=== PATIENT | female | born 1970 | race Caucasian/White ===

== ENCOUNTER 2020-02-12 10:00 | Outpatient (CLI) | payer BC | END 2020-02-12 10:01 | disposition home or self-care (01) | LOC: DTY/OP 10:00 | PROVIDERS: ATTEND Surgery | DX: E66.01 Morbid (severe) obesity due to excess calories (principal) | CPT/HCPCS: 97802 ==

== ENCOUNTER 2020-04-02 08:00 | Inpatient (IN) | payer BC ==
[2020-04-03] MEDS ORDERED: Lidocaine 1% PF 5 ML VIAL ONE (09:52)
[2020-04-03] MEDS ORDERED: Rocuronium Bromide 10 MG/ML (10ML VIAL) ONE (09:52)
[2020-04-03] MEDS ORDERED: PROPOFOL 200 MG/20 ML VIAL ONE (09:52)
[2020-04-03] MEDS ORDERED: Ondansetron PF 4 MG/2 ML Vial ONE ×2 (09:52→13:37)
[2020-04-03] MEDS ORDERED: Heparin 5,000 UNITS/ML VIAL ONE (11:38)
[2020-04-03] MEDS ORDERED: Bupivacaine 0.25% HCL 30 ML VIAL ONE (12:30)
[2020-04-03] MEDS ORDERED: Lidocaine 1% w/Epinephrine 1:100K 20 ML VIAL ONE (12:30)
[2020-04-03] MEDS ORDERED: Midazolam HCl 2 mg/2 ml Vial ONE (12:44)
[2020-04-03] MEDS ORDERED: Fentanyl 100 MCG/2 ML VIAL ONE ×5 (12:44→15:13)
[2020-04-03] MEDS ORDERED: SUGAMMADEX SODIUM 200 MG/2 ML VIAL ONE ×2 (13:37→13:56)
[2020-04-03] MEDS ORDERED: Zolpidem Tartrate 5 MG TAB PO PRN (14:26)
[2020-04-03] MEDS ORDERED: Promethazine HCl 25 MG/ML VIAL IM PRN ×2 (14:26→15:07)
[2020-04-03] MEDS ORDERED: diphenhydrAMINE 25 MG CAP PO PRN (14:26)
[2020-04-03] MEDS ORDERED: HYDROmorphone 10 mg/100 ml CADD IVPB PRN (14:26)
[2020-04-03] MEDS ORDERED: Naloxone HCl 0.4 mg/ml Vial IV PRN (14:26)
[2020-04-03] MEDS ORDERED: Ondansetron PF 4 MG/2 ML Vial IVP PRN ×2 (14:26→15:07)
[2020-04-03] MEDS ORDERED: diphenhydrAMINE 50 MG/ML VIAL IVP PRN ×2 (14:26→15:07)
[2020-04-03] MEDS ORDERED: diphenhydrAMINE 50 MG/ML VIAL IM PRN (14:26)
[2020-04-03] MEDS ORDERED: Communication Order-Pharmacy FS SCH (14:30)
--- NOTE | 2020-04-03 14:45 | OP ---
DATE OF PROCEDURE: 04/03/2020 PREOPERATIVE DIAGNOSES: 1. Morbid obesity. 2. Hypertension. POSTOPERATIVE DIAGNOSES: 1. Morbid obesity. 2. Hypertension. 3. Hiatal hernia. PROCEDURES PERFORMED: 1. Laparoscopic sleeve gastrectomy with GORE staple line reinforcement and 38-Uzbek bougie. 2. Paraesophageal hiatal hernia repair without mesh or fundoplication. ANESTHESIA: General. ESTIMATED BLOOD LOSS: 50 mL. COMPLICATIONS: None. FINDINGS: Hiatal hernia, normal postoperative EGD. DESCRIPTION OF PROCEDURE: The patient was taken to the operating room and laid supine on the operating room table. After general anesthetic was obtained, the arms and legs were double strapped to bariatric table. OG tube was used to decompress the stomach. The abdomen was prepped and draped in a sterile fashion. Left subcostal 5-mm Optiview trocar placed in the usual fashion. High-flow pneumoperitoneum was obtained. Left and right abdominal 12-mm ports as well as a right subcostal 5-mm port were all placed under direct visualization. A 5-mm incision was made at the xiphoid and Sara was used to raise the liver off the GE junction. Short gastrics were taken down from the midbody of the stomach to the left preet of diaphragm. Left preet, posterior fundus, and angle of His completely dissected. There was a paraesophageal hiatal hernia. Circumferential dissection of the esophagus was performed, bringing the GE junction and the fundus back into the abdominal cavity. The gastrohepatic ligament was entered medially to facilitate this. Short gastrics were taken down to a distance of 6 cm proximal to the pylorus. OG tube was removed and 38-bougie was brought in and its tip left in the antrum of the stomach. Multiple loads of an [place] stapling device were used to form the sleeve, the first was fired up at a distance of 6 cm proximal to the pylorus, angled up towards the incisura. Multiple loads were fired along the bougie and the stomach was completely transected at the angle of His. Stomach was removed from the left abdominal incision. The fascial defect was closed using GraNee needle and 0 Vicryl tie. One Ethibond suture in a Ti-KNOT system was used to close the fascial defect posteriorly. The bougie was removed and the EGD scope was passed through the esophagus, stomach to the level of duodenum without obstruction. There was no stricture at the incisura. There was no air leakage along the staple line. There was no evidence of involvement of the GE junction with the staple line. The EGD scope was used to decompress the stomach and it was pulled and removed. All port sites were infiltrated using local anesthetic. Sara retractor was removed under direct visualization without injury or bleeding. Pneumoperitoneum was let down. Vicryl was used to close the fascial defect from the left abdominal incision. All incisions were irrigated and closed using 4-0 Monocryl and Dermabond. The patient was sent to Recovery in stable condition. All instrument counts, needle counts, and lap counts were correct. Job ID: [id number]
[2020-04-03] MEDS ORDERED: hydrALAZINE 20 MG/ML VIAL SLOW IVP PRN (15:07)
[2020-04-03] MEDS ORDERED: Hydrocodone-Acetamin 15 ML UDCUP PO PRN (15:07)
[2020-04-03] MEDS ORDERED: Dextrose 5% in Water 1,000 ML IV PRN (15:07)
[2020-04-03] MEDS ORDERED: Dextrose 50% Abboject 50 ML SYRINGE SLOW IVP PRN (15:07)
[2020-04-03 16:47] VITALS: BMI 40.4
[2020-04-03] MEDS: D5 1/2 NS w/20 mEq KCL 1,000 ML IV SCH ×3 (17:16→23:07)
[2020-04-03] MEDS ORDERED: Enoxaparin Sodium 40 MG/0.4 ML SYRINGE SC SCH (21:00)
[2020-04-04 06:11] LABS: #Lymphocytes 0.9 thou/uL (1.20-3.40); #Monocytes 0.7 thou/uL (0.11-0.59); #Neutrophils 7.6 thou/uL (1.40-6.50); %Eosinophils 0.1 % (0.0-10.0); %Lymphocytes 9.8 % (21.0-51.0); %Monocytes 7.4 % (0.0-10.0); %Neutrophils 82.7 % (42.0-75.0); Hemoglobin 13.4 g/dL (12.0-16.0); Mean Corpuscular HGB CONC 33.5 g/dL (32.0-36.0); Mean Corpuscular Hemoglobin 28.6 pg (27.0-31.0); Mean Corpuscular Volume 85.4 fL (78.0-98.0); Mean Platelet Volume 8.1 fL (7.4-10.4); Platelet Count 270 thou/uL (130-400); RBC Distribution Width 12.3 % (11.5-14.5); Red Blood Cell (RBC) Count 4.69 mill/uL (4.20-5.40); White Blood Cell (WBC) Count 9.1 thou/uL (4.8-10.8)
[2020-04-04 06:30] LABS: Anion Gap 12 mmol/L (10-20); BUN (Urea Nitrogen) 7 mg/dL (7.0-18.7); Calc. Creatinine Clearance 157 mL/min (70-130); Calcium 9.2 mg/dL (7.8-10.44); Carbon Dioxide 26 mmol/L (22-29); Chloride 103 mmol/L (98-107); Estimated GFR-MDRD 89; Glucose 122 mg/dL (70-105); Potassium 4.7 mmol/L (3.5-5.1); Sodium 136 mmol/L (136-145)
[2020-04-04] MEDS ORDERED: Hydrocodone-Acetamin 15 ML UDCUP PO PRN (08:10)
[2020-04-04] MEDS ORDERED: Pantoprazole 40 MG VIAL IVP SCH (09:00)
--- NOTE | 2020-04-04 09:00 | DIS ---
DATE OF ADMISSION: 04/03/2020 DATE OF DISCHARGE: 04/04/2020 ADMIT DIAGNOSIS: Morbid obesity. DISCHARGE DIAGNOSIS: Morbid obesity. PROCEDURES PERFORMED: Laparoscopic sleeve gastrectomy and hiatal hernia repair by Dr. Mauricio without complication. CONDITION ON DISCHARGE: Improved. STAFF: Juliocesar Mauricio MD HOSPITAL COURSE: On postop day 1, the patient is doing well, tolerating a liquid diet. Ambulatory. Pain is well controlled. She is discharged home. She will follow up with me in 2 weeks. Job ID: [id number]
[2020-04-04 12:07] VITALS: BP 151/91; TEMP 98.9
== END 2020-04-04 12:10 | disposition home or self-care (01) | DRG 621 ==
LOC: SURG A 04-03 10:48 → UNDOADMIN 04-03 10:48 → SJJU 04-03 15:07
PROVIDERS: ADMIT Surgery; ATTEND Surgery
PROC: 0DB64Z3 Excision of Stomach, Percutaneous Endoscopic Approach, Vertical (ICD-10-PCS; principal; 2020-04-03)
PROC: 0BQT4ZZ Repair Diaphragm, Percutaneous Endoscopic Approach (ICD-10-PCS; 2020-04-03)
DX: E66.01 Morbid (severe) obesity due to excess calories (principal); I10 Essential (primary) hypertension; K44.9 Diaphragmatic hernia without obstruction or gangrene; Z68.41 Body mass index [BMI] 40.0-44.9, adult
CPT/HCPCS: 36415; 80048; 85025; 88307; 88312; C9113; J0690; J1644; J1650; J2250; J2405; J2704; J3010; J3480; S0020

== ENCOUNTER 2020-08-29 15:09 | Observation (INO) | payer BC ==
[2020-08-29] MEDS ORDERED: Ondansetron PF 4 MG/2 ML Vial ONE (15:41)
[2020-08-29] MEDS ORDERED: Morphine 4 MG/ML VIAL ONE (15:41)
[2020-08-29 16:06] LABS: #Eosinphils 0.2 thou/uL (0.0-0.7); #Lymphocytes 1.2 thou/uL (1.20-3.40); #Monocytes 0.6 thou/uL (0.11-0.59); %Basophils 0.6 % (0.0-1.0); %Eosinophils 2.7 % (0.0-10.0); %Lymphocytes 16.9 % (21.0-51.0); %Monocytes 8.9 % (0.0-10.0); %Neutrophils 70.9 % (42.0-75.0); Hemoglobin 12.4 g/dL (12.0-16.0); Mean Corpuscular HGB CONC 32.3 g/dL (32.0-36.0); Mean Corpuscular Hemoglobin 28.1 pg (27.0-31.0); Mean Platelet Volume 8.2 fL (7.4-10.4); Platelet Count 252 thou/uL (130-400); RBC Distribution Width 11.8 % (11.5-14.5); Red Blood Cell (RBC) Count 4.43 mill/uL (4.20-5.40); White Blood Cell (WBC) Count 7.1 thou/uL (4.8-10.8)
[2020-08-29 16:08] LABS: Bilirubin Negative (Negative); Blood, Urine Negative (Negative); Clarity Clear (Clear); Glucose, Urine (Dipstick) Normal (Negative); Ketone, Urine Negative (Negative); Leukocyte Negative Leu/uL (Negative); Nitrite Negative (Negative); Protein, Urine (Dipstick) 10 mg/dL (Neg-Trace); Specific Gravity, Urine 1.035 (1.002-1.036); Urobilinogen Normal mg/dL (Less than 2); pH, Urine 5.5 (5.0-9.0)
[2020-08-29 16:16] LABS: BHCG - Serum Negative (NEGATIVE); Pregs Control Background? CLEAR/WHITE (CLR/WHITE); Pregs Control Bar Appear? YES (CONTROL BAR)
--- NOTE | 2020-08-29 16:24 | ULT ---
ULTRASOUND ABDOMEN LIMITED: (RIGHT UPPER QUADRANT) DATE: 08/29/2020 HISTORY: Right upper quadrant abdominal pain in 50-year-old female FINDINGS: Gallbladder:Large, apparently immobile gallstone at least 33 mm. Wall thickness approximately 2 mm. N o pericholecystic fluid. Common duct: 4 mm. Liver:Echogenicity within normal limits Pancreas:Nonspecific sonographic appearance Right kidney:No hydronephrosis IMPRESSION: Positive for cholelithiasis with at least one large gallstone
[2020-08-29 16:28] LABS: ALT (SGPT) 49 U/L (8-55); AST (SGOT) 125 U/L (5-34); Albumin 3.7 g/dL (3.5-5.0); Alkaline Phosphatase 106 U/L (40-110); Anion Gap 14 mmol/L (10-20); BUN (Urea Nitrogen) 17 mg/dL (9.8-20.1); Bilirubin, Total 0.3 mg/dL (0.2-1.2); Calc. Creatinine Clearance 0 mL/min (70-130); Calcium 8.3 mg/dL (7.8-10.44); Carbon Dioxide 21 mmol/L (22-29); Chloride 107 mmol/L (98-107); Globulin 3.7 g/dL (2.4-3.5); Glucose 120 mg/dL (70-105); Lipase 32 U/L (8-78); Protein, Total 7.4 g/dL (6.0-8.3); Sodium 138 mmol/L (136-145)
[2020-08-29] MEDS ORDERED: Ondansetron PF 4 MG/2 ML Vial IVP PRN (17:00)
[2020-08-29] MEDS ORDERED: Ondansetron ODT 4 MG TAB SL PRN (17:00)
[2020-08-29] MEDS ORDERED: Morphine 4 MG/ML VIAL SLOW IVP PRN ×2 (17:00→18:25)
[2020-08-29] MEDS ORDERED: Morphine 2 MG/ML VIAL SLOW IVP PRN (18:26)
[2020-08-29 18:52] VITALS: BMI 33.1
[2020-08-29] MEDS: Sodium Chloride 0.9% 1,000 ML IV SCH (19:47)
[2020-08-30] MEDS: Sodium Chloride 0.9% 1,000 ML IV SCH (03:21)
[2020-08-30 08:31] LABS: SARS-CoV-2 MS2 Positive; SARS-CoV-2 N Gene Negative; SARS-CoV-2 S Gene Negative; SARS-CoV-2 by NAA Not Detected (NotDetected); SARS-CoV-2 orf1ab Negative
[2020-08-30] MEDS ORDERED: Bupivacaine 0.25% HCL 30 ML VIAL ONE (09:05)
[2020-08-30] MEDS ORDERED: Lidocaine 1% w/Epinephrine 1:100K 20 ML VIAL ONE (09:05)
[2020-08-30] MEDS ORDERED: Ondansetron PF 4 MG/2 ML Vial IVP PRN (09:06)
[2020-08-30] MEDS ORDERED: Morphine 2 MG/ML VIAL SLOW IVP PRN (09:06)
[2020-08-30] MEDS ORDERED: Morphine 4 MG/ML VIAL SLOW IVP PRN (09:06)
[2020-08-30] MEDS ORDERED: Dextrose 5% in Water 1,000 ML IV PRN (09:06)
[2020-08-30] MEDS ORDERED: Dextrose 50% Abboject 50 ML SYRINGE SLOW IVP PRN (09:06)
[2020-08-30] MEDS ORDERED: D5 1/2 NS w/20 mEq KCL 1,000 ML IV SCH (09:15)
[2020-08-30] MEDS ORDERED: Lidocaine 1% PF 5 ML VIAL ONE (10:47)
[2020-08-30] MEDS ORDERED: Rocuronium Bromide 10 MG/ML (10ML VIAL) ONE (10:47)
[2020-08-30] MEDS ORDERED: PROPOFOL 200 MG/20 ML VIAL ONE (10:47)
[2020-08-30] MEDS ORDERED: Glycopyrrolate 0.2 MG/ML 5 ML SYRINGE ONE (10:47)
[2020-08-30] MEDS ORDERED: Ondansetron PF 4 MG/2 ML Vial ONE (10:47)
[2020-08-30] MEDS ORDERED: Ketorolac Tromethamine 30 MG/ML VIAL ONE (10:47)
[2020-08-30] MEDS ORDERED: Dexamethasone 20 MG/5 ML VIAL ONE (10:47)
--- NOTE | 2020-08-30 11:04 | HP ---
CHIEF COMPLAINT: Epigastric abdominal pain, cholelithiasis. HISTORY OF PRESENT ILLNESS: The patient is a 50-year-old very pleasant white female. She underwent laparoscopic sleeve gastrectomy in March. Her preoperative weight was about 233 pounds and her current weight is 187 pounds. She notes having done well since the surgery. She developed epigastric abdominal pain about a week ago, that was severe but seemed to resolve over the course of couple of hours. Last night, she developed another episode that was worse. It was associated with severe nausea but no vomiting. She presented to the emergency room, where she was given narcotic medication with improvement of her symptoms, but they were not able to control her pain while she was in the emergency room. I recommended admission with limited oral intake and continued pain medication as necessary. Gallbladder ultrasound showed cholelithiasis with a large gallstone present within the gallbladder. Her CBC and chemistry profile were unremarkable with no elevation of white blood cell count. AST was slightly elevated at 125. PAST MEDICAL HISTORY: Significant for anxiety. PAST SURGICAL HISTORY: x2 and sleeve gastrectomy. MEDICATIONS: She was formerly taking Zoloft, but she is no longer taking it. Her only current medication is Protonix and her bariatric vitamins. ALLERGIES: NO KNOWN DRUG ALLERGIES. PERSONAL AND SOCIAL HISTORY: She is with 3 children. She works for [employer]. She does not smoke nor does she drink alcohol. REVIEW OF SYSTEMS: Ten-system review is otherwise negative. FAMILY HISTORY: Noncontributory. PHYSICAL EXAMINATION: VITAL SIGNS: She is afebrile. Vital signs are within normal limits. GENERAL: She is a well-developed, well-nourished, very pleasant white female, resting in bed, in no acute distress. She notes that her abdominal discomfort is significantly improved. HEAD, EYES, EARS, NOSE, AND THROAT: Unremarkable. NECK: Supple without masses or tenderness. LUNGS: Clear to auscultation throughout. CARDIAC: Regular rate and rhythm without murmur. ABDOMEN: Soft with focal right upper quadrant tenderness to deeper palpation. She notes this is still improved from what it was last night. EXTREMITIES: Unremarkable. ASSESSMENT: The patient with symptomatic cholelithiasis and cholecystitis. PLAN: Laparoscopic cholecystectomy. I have discussed the operation in detail with the patient as well as potential risks. She understands and agrees to proceed with surgery at this time. Job ID: [id number]
[2020-08-30] MEDS ORDERED: Fentanyl 100 MCG/2 ML VIAL ONE ×3 (11:52→13:55)
[2020-08-30] MEDS ORDERED: HYDROmorphone 2 MG/ML VIAL SLOW IVP PRN (13:32)
[2020-08-30] MEDS ORDERED: Promethazine HCl 25 MG/ML VIAL SLOW IVP PRN (13:32)
[2020-08-30] MEDS ORDERED: Promethazine HCl 25 MG/ML VIAL IM PRN (13:32)
[2020-08-30] MEDS ORDERED: Ondansetron HCl/PF 4 MG/2 ML Vial IVP PRN (13:32)
[2020-08-30 17:14] VITALS: BP 154/93; TEMP 98.3
[2020-08-30] MEDS ORDERED: Famotidine/PF 20 mg/2ml Vial SLOW IVP SCH (21:00)
--- NOTE | 2020-09-01 10:27 | OP ---
DATE OF PROCEDURE: 08/30/2020 PREOPERATIVE DIAGNOSIS: Symptomatic cholelithiasis. POSTOPERATIVE DIAGNOSIS: Symptomatic cholelithiasis. PROCEDURE: Laparoscopic cholecystectomy. ANESTHESIA: General endotracheal anesthesia. INDICATIONS: The patient is a 50-year-old white female who had undergone a sleeve gastrectomy recently. She has had good weight loss associated with this. She presented today with a severe episode of right upper quadrant abdominal pain and found to have a large dominant gallstone within the gallbladder. This was felt to be nonmobile and I recommended proceeding with cholecystectomy at this time. PROCEDURE IN DETAIL: Informed consent was obtained. The patient was taken to the operating room where general endotracheal anesthesia was obtained with the patient in the supine position. The abdomen was prepped with Betadine and draped in the usual sterile fashion. 0.25% Marcaine with epinephrine was infiltrated below the umbilicus and a 10 mm infraumbilical incision was created. A Veress needle was passed through this incision into the peritoneal cavity. A pneumoperitoneum was established using carbon dioxide up to a pressure of 15 mmHg. Local anesthetic was infiltrated and 3 additional 5 mm right upper quadrant incisions were created. Through the mid incision, a 5 mm port was passed into the peritoneal cavity. The camera was passed through this port and under direct vision, an 11 port was passed through the infraumbilical incision. The camera was replaced through this port, and under direct vision, 2 additional 5 mm ports were passed through the incisions already created. The gallbladder was grasped and retracted in a cephalad direction. Minimal adhesions were bluntly stripped away from the apex of the gallbladder, and the apex was retracted laterally and inferiorly. Careful dissection was carried out to the apex of the gallbladder to identify the cystic duct and cystic artery. These were each carefully dissected circumferentially. The duct was of normal caliber. Both the duct and the artery were divided between clips, leaving 2 on the side to remain within the abdomen. The gallbladder was then dissected out of the gallbladder fossa using electrocautery and removed through the infraumbilical port site. The fascia was closed with 0 Vicryl suture and a GraNee needle. The right upper quadrant was inspected and irrigated. All irrigant was aspirated. All ports and instruments were removed under direct vision. Pneumoperitoneum was carefully evacuated. Additional local anesthetic was infiltrated into each port site. The skin edges were approximated with 4-0 Monocryl subcuticular sutures, and Dermabond was placed externally. There were no complications. The patient tolerated the procedure well and was taken to the recovery room in stable condition. FINDINGS: In making her incisions, I was able to use 3 of her prior laparoscopic incisions from her bariatric surgery. The extraction port was the right paramedian port. Because of the large size of the gallstone, the skin and the fascia had to be enlarged to allow complete removal. The fascia was closed in a [id number] fashion using 0 Vicryl with a GraNee needle. There were no complications during the operation. She tolerated it well and was taken to recovery room in stable condition. Job ID: [id number]
== END 2020-08-30 17:39 | disposition home or self-care (01) ==
LOC: ERS 15:09 → SURG A 17:16
PROVIDERS: ADMIT Specialist; ATTEND Specialist
PROC: 0FT44ZZ Resection of Gallbladder, Percutaneous Endoscopic Approach (ICD-10-PCS; principal; 2020-08-30)
DX: K80.12 Calculus of gallbladder with acute and chronic cholecystitis without obstruction (principal); F41.9 Anxiety disorder, unspecified; Z79.899 Other long term (current) drug therapy; Z98.84 Bariatric surgery status; Z20.828 Contact with and (suspected) exposure to other viral communicable diseases
CPT/HCPCS: 76705; 80053; 81003; 83690; 84703; 85025; 87635; 88304; 93005; 96374; 96375; 96376; G0378; J0690; J1100; J1885; J2270; J2405; J2704; J3010; S0020; U0003